=== PATIENT | female | born 1995 | race Two or more races ===

== ENCOUNTER 2023-03-24 18:32 | Emergency (ER) | payer OTHER ==
[~2023-03-24] VITALS: Ht 167.6 cm; Wt 89.4 kg
[2023-03-24 19:36] LABS: Urine Bacteria FEW /hpf (None Seen); Urine Blood Negative /uL (Negative); Urine Clarity HAZY (Clear); Urine Color Yellow (Yellow); Urine Mucus FEW (None Seen); Urine Protein, UAD TRACE (Negative); Urine Specific Gravity 1.034 (1.001-1.035); Urine Urobilinogen Normal (Negative); Urine WBC 1 /hpf (0 - 5); Urine pH 5.5 (5.0-8.0)
[2023-03-24 20:14] VITALS: BP 143/90; PULSE 88; RESP 18; TEMP 97.2; O2SAT 98
[2023-03-24] MEDS ORDERED: IBUPROFEN 800 MG TAB PO ONE (22:30)
== END 2023-03-25 00:06 | disposition home or self-care (01) ==
LOC: ER 18:32
DX: S80.01XA Contusion of right knee, initial encounter (principal); W18.39XA Other fall on same level, initial encounter; Y93.89 Activity, other specified; Y92.89 Other specified places as the place of occurrence of the external cause; Y99.8 Other external cause status
CPT/HCPCS: 73562; 81001; 81025

== ENCOUNTER 2023-03-30 10:02 | Emergency (ER) | payer OTHER ==
[~2023-03-30] VITALS: Ht 167.6 cm; Wt 92.9 kg
[2023-03-30 10:31] VITALS: BP 140/76; PULSE 79; RESP 18; TEMP 97.9; O2SAT 96
== END 2023-03-30 10:41 | disposition home or self-care (01) ==
LOC: ER 10:02
DX: S83.91XD Sprain of unspecified site of right knee, subsequent encounter (principal); X58.XXXD Exposure to other specified factors, subsequent encounter